=== PATIENT | male | born 1965 | race Caucasian/White ===

== ENCOUNTER 2017-04-09 14:21 | Emergency (ER) | payer OTHER ==
[~2017-04-09] VITALS: Ht 185.4 cm; Wt 114.3 kg
[2017-04-09 16:33] LABS: HEMATOCRIT 41.9 % (38.0-50.0); MCH 27.5 PG (29.0-34.0); MCHC 32.5 G/DL (30.0-36.0); MCV 84.6 FL (86-99); MEAN PLAT.VOLUME 8.9 uM^3 (9.0-12.4); PLATELET COUNT 373 K/uL (156-360); RBC DIS.WIDTH-CV 12.2 % (11.8-14.6); RBC DIS.WIDTH-SD 37.2 % (39-53); RED BLOOD COUNT 4.95 M/uL (4.00-5.50); WHITE BLOOD COUNT 8.3 K/uL (4.1-10.2)
[2017-04-09 16:42] LABS: CHLORIDE 99 mEq/L (99-109); POTASSIUM 4.4 mEq/L (3.7-5.4)
[2017-04-09 16:43] LABS: SODIUM 136 mEq/L (136-147)
[2017-04-09 16:44] LABS: GLUCOSE 89 mg/dL (70-99)
[2017-04-09 16:46] LABS: ANION GAP 11 MEQ/L (2-14)
[2017-04-09 16:48] LABS: GFR ESTIMATE (CALCULATED) > 59 mL/min/
[2017-04-09 16:49] LABS: UREA NITROGEN (BUN) 17 mg/dL (9-23)
[2017-04-09 20:56] VITALS: BP 115/75
== END 2017-04-09 21:02 ==
LOC: EME 14:21
PROVIDERS: Emergency Medicine
DX: L03.116 Cellulitis of left lower limb (principal); M79.89 Other specified soft tissue disorders; I10 Essential (primary) hypertension; Z96.652 Presence of left artificial knee joint; Z86.14 Personal history of Methicillin resistant Staphylococcus aureus infection; Z87.891 Personal history of nicotine dependence
CPT/HCPCS: 80048; 85027; 87040; 99281; 99285; J3370

== ENCOUNTER 2017-05-26 11:25 | Emergency (ER) | payer OTHER ==
[~2017-05-26] VITALS: Ht 185.4 cm; Wt 110.3 kg
[2017-05-26] MEDS ORDERED: ADVIL,NUPRIN,M200 MG PO (11:43)
[2017-05-26] MEDS ORDERED: VITAMIN E TP (11:45)
[2017-05-26] MEDS ORDERED: BACLOFEN20 MG PO (11:47)
[2017-05-26] MEDS ORDERED: NEURONTIN300 MG PO (11:48)
[2017-05-26] MEDS ORDERED: LISINOPRIL20 MG PO (11:48)
[2017-05-26] MEDS ORDERED: COLACE100 MG PO (11:49)
[2017-05-26] MEDS ORDERED: TYLENOL EXTRA500 MG PO (11:49)
[2017-05-26] MEDS ORDERED: TRAMADOL HCL50 MG PO (11:50)
[2017-05-26] MEDS ORDERED: PROBIOTIC1 EAC1 PO (11:51)
[2017-05-26 12:45] LABS: EOSINOPHIL (%) 0 % (0-5); HEMATOCRIT 42.2 % (38.0-50.0); IMMATURE GRANULOCYTE (%) 0.6 % (0.0-0.7); LYMPHOCYTE COUNT 0.6 K/uL (1.0-2.8); MCH 27.1 PG (29.0-34.0); MCHC 33.4 G/DL (30.0-36.0); MEAN PLAT.VOLUME 9.5 uM^3 (9.0-12.4); MONOCYTE COUNT 0.6 K/uL (0-0.8); PLATELET COUNT 193 K/uL (156-360); RBC DIS.WIDTH-CV 13.5 % (11.8-14.6); RBC DIS.WIDTH-SD 39.7 % (39-53); RED BLOOD COUNT 5.21 M/uL (4.00-5.50); WHITE BLOOD COUNT 7.2 K/uL (4.1-10.2)
[2017-05-26 13:00] LABS: CHLORIDE 98 mEq/L (99-109); POTASSIUM 4.2 mEq/L (3.7-5.4); SODIUM 129 mEq/L (136-147)
[2017-05-26 13:02] LABS: GLUCOSE 182 mg/dL (70-99)
[2017-05-26 13:04] LABS: ANION GAP 10 MEQ/L (2-14); TOTAL BILIRUBIN 0.8 mg/dL (0.0-1.0)
[2017-05-26 13:06] LABS: ALKALINE PHOSPHATASE 132 IU/L (3-129); GFR ESTIMATE (CALCULATED) 57 mL/min/
[2017-05-26 13:07] LABS: UREA NITROGEN (BUN) 17 mg/dL (9-23)
[2017-05-26 15:00] VITALS: BP 136/75
== END 2017-05-26 14:40 | disposition short-term general hospital (02) ==
LOC: EME 11:25
PROVIDERS: Emergency Medicine
DX: T81.4XXA Infection following a procedure, initial encounter (principal); R50.9 Fever, unspecified; Y83.8 Other surgical procedures as the cause of abnormal reaction of the patient, or of later complication, without mention of misadventure at the time of the procedure; Z96.652 Presence of left artificial knee joint; Z86.14 Personal history of Methicillin resistant Staphylococcus aureus infection; Z87.891 Personal history of nicotine dependence
CPT/HCPCS: 71010; 73564; 80053; 81003; 83605; 85025; 87040; 99281; 99285; J7030